=== PATIENT | female | born 1985 | race Caucasian/White ===

== ENCOUNTER → 2017-04-17 | Outpatient (CLI) | payer MEDICAID ==
[~2017-04-17] MED LIST: BUPR100CR PO; IBUP-232 PO; PREN1CAP7 PO
== END ==
LOC: HPND 12:29
PROVIDERS: ATTEND Obstetrics & Gynecology
DX: O36.63X0 Maternal care for excessive fetal growth, third trimester, not applicable or unspecified (principal); Z3A.36 36 weeks gestation of pregnancy
CPT/HCPCS: 76816

== ENCOUNTER 2017-05-11 11:47 | Emergency (ER) | payer MEDICAID ==
[~2017-05-11 11:47] MED LIST changes: -IBUP-232 PO
--- NOTE | 2017-05-11 12:28 | PD ---
HPI Chief Complaint Contractions Date Seen: May 11, 2017 Time Seen: 12:24 Travel History International Travel<30 Days: No Contact w/Intl Traveler<30Days: No Known Affected Area: No History of Present Illness HPI 31-year-old who is at 39 weeks 6 days comes in complaining of contractions off and on since last night they have been mild to moderate in intensity. Cervical check on was 1 cm. She is presently group B strep negative and she has no other, occasions during this . She's had 1 prior spontaneous vaginal delivery at term Weeks Gestation: 1 Para: 2 History Past Medical History Medical History: Denies Significant Hx Obstetric History Obstetric History Spontaneous vaginal delivery 7 lbs. 4 oz. Past Surgical History Surgical History: No Previous Surgery Family History Family History: Negative Social History Alcohol Use: No Tobacco Use: No Substance Abuse: No Allergies-Medications (Allergen,Severity, Reaction): Coded Allergies: No Known Allergies (Verified , 05/08/17) Home Meds Active Scripts W/O Vit A W/ Fe Fumar ([facility] [place]) 27-1-260 Mg Cap, 1 CAP PO DAILY for Nutritional Supplement, #60 CAP 0 Refills Prov:Alexandra Cooley CNM [employer] 09/26/16 Without A W/ Fe Asp G ([facility] 30-1-470 mg) 1 Cap Cap Prov:Vivek Harding MD 09/26/16 Reported Medications Bupropion HCl ER 12 HR (Wellbutrin SR 12 HR) 100 Mg Tab, 100 MG PO Q12HR for Control Depression, TAB 0 Refills 02/17/17 Review of Systems Except as stated in HPI: all other systems reviewed are Neg Physical Exam Narrative GENERAL: Well-nourished, well-developed patient. SKIN: Warm and dry. HEAD: Normocephalic and atraumatic. EYES: No scleral icterus. No injection or drainage. ENT: No nasal drainage noted. Mucous membranes pink. Airway patent. NECK: Supple, trachea midline. No JVD. CARDIOVASCULAR: Regular rate and rhythm without murmurs, gallops, or rubs. RESPIRATORY: Breath sounds equal bilaterally. No accessory muscle use. ABDOMEN/GI: Abdomen soft, non-tender, bowel sounds present, no rebound, no guarding Gravid to [38-] weeks size Fundal Height: [-] GENITOURINARY: External Genitalia: intact and normal in appearance BUS glands: [-Normal] Cervix: [-Posterior] Dilatation: [-1] Effacement: [-50] Station: [--3 vertex] Presentation: [-] Membranes: [intact ] Uterine Contractions: [-Every 5 minutes] FHT's: Category: [-1] Baseline: [140-] Reactive: [-Moderate] Variability: [Moderate-] Decels: [-Absent] EXTREMITIES: No cyanosis or edema. BACK: Nontender without obvious deformity. No CVA tenderness. NEUROLOGICAL: Awake and alert. Motor and sensory grossly within normal limits. Five out of 5 muscle strength in all muscle groups. Normal speech. Data Data Vital Signs Reviewed: Yes Group B Strep: Negative MDM Medical Record Reviewed: Yes Plan 31-year-old who is at 39 weeks 6 days with contractions most likely in latent labor Cervix is unchanged from last Discussed with patient going home with comfort measures including massage, walking, adequate hydration Discussed labor precautions and when to return back to the hospital Diagnosis Diagnosis: Primary Impression: 39 weeks gestation of Additional Impression: Irregular uterine contractions Disposition: 01 DISCHARGE HOME Sharri Pino MD May 11, 2017 12:28
== END 2017-05-11 12:56 | disposition home or self-care (01) ==
LOC: HOBED 11:47
DX: O62.9 Abnormality of forces of labor, unspecified (principal); Z3A.39 39 weeks gestation of pregnancy
CPT/HCPCS: 99283

== ENCOUNTER 2017-05-11 20:04 | Inpatient (IN) | payer MEDICAID, OTHER ==
[2017-05-11] VITALS (21 sets, daily range): BP systolic 53–123; BP diastolic 26–70; PULSE 98–124; RESP 18; TEMP 98.2
[~2017-05-11] VITALS: Ht 160 cm; Wt 77.1 kg
[2017-05-11] MEDS ORDERED: LACTATED RINGER'S 1000 ML INJ 1,000 ML IV SCH (20:33)
[2017-05-11] MEDS ORDERED: LACTATED RINGER'S 1000 ML INJ 1,000 ML IV PRN (20:33)
--- NOTE | 2017-05-11 20:33 | PD ---
HPI Chief Complaint contractions Travel History International Travel<30 Days: No Contact w/Intl Traveler<30Days: No Known Affected Area: No History of Present Illness HPI 31-year-old who is at 39 weeks 6 days who is here earlier today and latent labor at 1 cm. Patient states that over the past several hours her contractions have increased in severity and have become much more frequent and she is in quite a bit of discomfort. She is group B strep negative Weeks Gestation: 39 (39.6) Para: 1 : 2 History Past Medical History Medical History: Denies Significant Hx Obstetric History Obstetric History Spontaneous vaginal delivery 7 lbs. 4 oz. Family History Family History: Negative Social History Alcohol Use: No Tobacco Use: No Substance Abuse: No Allergies-Medications (Allergen,Severity, Reaction): Coded Allergies: No Known Allergies (Verified , 05/08/17) Home Meds Active Scripts W/O Vit A W/ Fe Fumar ([facility] [place]) 27-1-260 Mg Cap, 1 CAP PO DAILY for Nutritional Supplement, #60 CAP 0 Refills Prov:Alexandra Cooley CNM [employer] 09/26/16 Without A W/ Fe Asp G ([facility] 30-1-470 mg) 1 Cap Cap Prov:Vivek Harding MD 09/26/16 Reported Medications Bupropion HCl ER 12 HR (Wellbutrin SR 12 HR) 100 Mg Tab, 100 MG PO Q12HR for Control Depression, TAB 0 Refills 02/17/17 Review of Systems Except as stated in HPI: all other systems reviewed are Neg Physical Exam Narrative GENERAL: Well-nourished, well-developed patient. SKIN: Warm and dry. HEAD: Normocephalic and atraumatic. EYES: No scleral icterus. No injection or drainage. ENT: No nasal drainage noted. Mucous membranes pink. Airway patent. NECK: Supple, trachea midline. No JVD. CARDIOVASCULAR: Regular rate and rhythm without murmurs, gallops, or rubs. RESPIRATORY: Breath sounds equal bilaterally. No accessory muscle use. ABDOMEN/GI: Abdomen soft, non-tender, bowel sounds present, no rebound, no guarding Gravid to [-39] weeks size Fundal Height: [-] GENITOURINARY: External Genitalia: intact and normal in appearance BUS glands: [-Normal] Cervix: [-Mid position] Dilatation: [2-3-] Effacement: [50-] Station: [--2] Presentation: [-Vertex] Membranes: [intact ] Uterine Contractions: [-Every 5] FHT's: Category: [-1] Baseline: [140-] Reactive: [Moderate-] Variability: [-Moderate] Decels: [-Absent] EXTREMITIES: No cyanosis or edema. BACK: Nontender without obvious deformity. No CVA tenderness. NEUROLOGICAL: Awake and alert. Motor and sensory grossly within normal limits. Five out of 5 muscle strength in all muscle groups. Normal speech. Data Data Vital Signs Reviewed: Yes Group B Strep: Negative MDM Medical Record Reviewed: Yes Plan 31-year-old who is at 39 weeks 6 days who is most likely continuing to be in latent labor but this is her second visit to the labor floor and she has documented cervical change and she is very uncomfortable Will admit to labor delivery and monitor for cervical change GBS negative Diagnosis Diagnosis: Primary Impression: Prolonged latent phase of labor Additional Impression: 39 weeks gestation of Sharri Pino MD May 11, 2017 20:33
[2017-05-11] MEDS ORDERED: SODIUM CHLORID 0.9% 500 ML INJ 500 ML IV PRN (20:45)
[2017-05-11] MEDS ORDERED: OXYTOCIN 30 UNITS-500ML PREMIX 500 ML IV ONE (20:45)
[2017-05-11] MEDS ORDERED: ONDANSETRON HCL 4 MG/2 ML VIAL IV PUSH PRN (20:45)
[2017-05-11] MEDS ORDERED: LIDOCAINE HCL 1% 50 ML VIAL I-DERMAL PRN (20:45)
[2017-05-11] MEDS ORDERED: CITRIC ACID-SODIUM CITRATE LIQ 30 ML UDC PO SCH (20:45)
[2017-05-11] MEDS ORDERED: MINERAL OIL 10 ML VIAL TOPICAL PRN (20:45)
[2017-05-11] MEDS ORDERED: LIDOCAINE HCL 1% 50 ML VIAL INFIL PRN (20:45)
[2017-05-11] MEDS ORDERED: SODIUM CHLOR 0.9% 1000 ML INJ 1,000 ML IV PRN (20:53)
[2017-05-11 21:20] LABS: AUTOMATED NEUTROPHIL # 13.3 TH/MM3 (1.8-7.7); BASOPHIL % 0.1 % (0.0-2.0); EOSINOPHIL # 0.1 TH/MM3 (0-0.4); EOSINOPHIL % 0.3 % (0.0-4.0); HEMATOCRIT 37.9 % (35.0-46.0); HEMO FLAGS DIFF FINAL; LYMPHOCYTE # 2.1 TH/MM3 (1.0-4.8); MEAN CELL VOLUME 89.1 FL (80.0-100.0); MEAN CORPUSCULAR HEMOGLOBIN 29.9 PG (27.0-34.0); MEAN CORPUSCULAR HGB CONC 33.5 % (32.0-36.0); MONO % 6.4 % (0.0-8.0); NEUT % 80.2 % (16.0-70.0); PLATELET COUNT 187 TH/MM3 (150-450); RED BLOOD COUNT 4.25 MIL/MM3 (4.00-5.30); RED CELL DISTRIBUTION WIDTH 13.7 % (11.6-17.2); WHITE BLOOD COUNT 16.5 TH/MM3 (4.0-11.0)
[2017-05-11] MEDS ORDERED: fentaNYL 2MCG-BUPIV 0.125% INJ 100 ML ONE (22:06)
[2017-05-11] MEDS ORDERED: ePHEDrine/NS 25 MG/5 ML SYR ONE (22:35)
[2017-05-11 23:19] LABS: BACTERIA, URINE FEW /hpf; BLOOD, URINE TRACE (NEG); CALCIUM OXALATE CRYSTALS,URINE MANY /hpf; COMMENT (UR) CULTURE INDICATED; CULTURE IF INDICATED CULTURE INDICATED; GLUCOSE,URINE NEG (NEG); KETONE, URINE 150 mg/dL (NEG); MUCUS URINE FEW /lpf (OCC); NITRITE,URINE NEG (NEG); SQUAMOUS EPITHELIAL CELL URINE 4 /hpf (0-5); URINE COLOR YELLOW (YELLW/STRAW)
[2017-05-12] VITALS (87 sets, daily range): BP systolic 65–120; BP diastolic 19–76; PULSE 89–121; RESP 16–20; TEMP 98–98.6
[2017-05-12] MEDS ORDERED: OXYTOCIN 30 UNITS-500ML PREMIX 500 ML IV SCH ×3 (07:45→18:30)
[2017-05-12] MEDS ORDERED: fentaNYL 2MCG-BUPIV 0.125% INJ 100 ML ONE (07:47)
--- NOTE | 2017-05-12 08:17 | PD.LABORPN ---
Subjective Subjective Admitted last night in latent labor with cervical dilation of 2cm. Labor progressed slowly with epidural placement overnight. Last cervical check 4-5cm at 0700 Objective Vital Signs Vital Signs Date Time Temp Pulse Resp B/P (MAP) Pulse Ox O2 Delivery O2 Flow Rate FiO2 05/12/17 08:00 98.4 05/12/17 06:00 103 18 107/55 (72) 05/12/17 05:45 18 05/12/17 05:45 106 100/52 (68) 05/12/17 05:30 18 05/12/17 05:15 102 92/52 (65) 05/12/17 05:15 18 05/12/17 05:00 18 05/12/17 05:00 110 77/40 (52) 05/12/17 04:45 18 05/12/17 04:45 110 100/54 (69) 05/12/17 04:30 98 92/36 (54) 05/12/17 04:29 18 05/12/17 04:15 100 18 100/43 (62) 05/12/17 04:00 18 05/12/17 04:00 105 91/41 (58) 05/12/17 03:45 18 05/12/17 03:45 102 97/50 (66) 05/12/17 03:30 104 92/63 (73) 05/12/17 03:30 18 05/12/17 03:15 100 93/44 (60) 05/12/17 03:15 18 05/12/17 03:00 106 97/44 (61) 05/12/17 03:00 18 05/12/17 02:45 18 05/12/17 02:45 100 94/45 (61) 05/12/17 02:30 102 113/50 (71) 05/12/17 02:15 18 05/12/17 02:15 115 81/44 (56) 05/12/17 02:00 96/48 (64) 05/12/17 02:00 102 05/12/17 02:00 98.0 05/12/17 02:00 18 05/12/17 01:45 18 05/12/17 01:30 18 05/12/17 01:30 104 98/48 (65) 05/12/17 01:15 105 87/48 (61) 05/12/17 01:15 18 05/12/17 01:00 18 05/12/17 01:00 105 92/48 (63) 05/12/17 00:45 97 93/42 (59) 05/12/17 00:45 18 05/12/17 00:30 97 90/44 (59) 05/12/17 00:30 18 05/12/17 00:15 18 05/12/17 00:15 101 103/52 (69) Objective Pelvic Exam: Cervix: [] Dilatation: [5-6-] Effacement: 80 Station: -2 Presentation: Vertex Membranes: Artificial rupture membranes with copious amounts of clear fluid Uterine Contractions: Every 5 FHT's: Category: 1 Baseline: 140 Reactive: Moderate Variability: Moderate Decels: Absent Weeks Gestation: 39 (39.6) Gest Age Assessed Date: May 11, 2017 Gest Age Assessed Time: 22:00 Pt started active labor?: Yes Active labor start date: May 11, 2017 Active labor start time: 04:00 Medical induction of labor?: No Artificial rupture of membrane: Yes Artificial ROM date: May 12, 2017 Artifical ROM time: 08:15 Assessment/Plan Assessment and Plan 40 weeks gestation with a negative group B strep admitted in latent labor now in active phase of labor Status post epidural placement with adequate pain relief Assisted rupture membranes with copious amounts of clear fluid noted and a category 1 heart rate tracing Sharri Pino MD May 12, 2017 08:17
[2017-05-12] MEDS ORDERED: NO SYSTEM NARCOTICS PRN (09:15)
[2017-05-12] MEDS ORDERED: fentaNYL 2MCG-BUPIV 0.125% 100 ML EPIDURAL SCH (09:15)
[2017-05-12] MEDS ORDERED: DO NOT ADMINISTER ANTICOAGULANTS PRN (09:15)
[2017-05-12] MEDS ORDERED: ePHEDrine/NS 25 MG/5 ML SYR IV PUSH PRN (09:15)
[2017-05-12] MEDS ORDERED: BUPIVACAINE HCL PF 0.25% 10 ML VIAL ONE (14:57)
[2017-05-12] MEDS ORDERED: DIPHTH/TETANUS/ACEL PERTUSSIS (BOOSTER) 0.5 ML VIAL/PFS IM ONE (16:00)
[2017-05-12] MEDS ORDERED: MEASLES, MUMPS, RUBELLA VACCINE 0.5 ML VIAL SQ ONE (16:00)
--- NOTE | 2017-05-12 18:22 | PD.OB.DELI ---
Weeks gestation: 39 (39.6) Gest age assessed date: May 11, 2017 Gest age assessed time: 22:00 Pt started active labor?: Yes Active labor start date: May 11, 2017 Active labor start time: 04:00 Medical induction of labor?: No Artificial rupture of membrane: Yes Artificial ROM date: May 12, 2017 Artifical ROM time: 08:15 Anesthesia: Epidural Episiotomy: None Vaginal Delivery: Normal Presentation: Occiput anterior Nuchal Cord: None Delayed cord clamping (45 sec): Yes : Female, Single Delivery date: May 12, 2017 Delivery time: 18:10 Weight: 3930 gm Placenta: Spontaneous delivery, Intact, 3 vessel cord Laceration: No lacerations Estimated blood loss: 200 cc Danny Powers II, MD May 12, 2017 18:22
[2017-05-12] MEDS ORDERED: ONDANSETRON ODT 4 MG TAB PO PRN (18:30)
[2017-05-12] MEDS ORDERED: WITCH HAZEL 50%/GLYCERIN 12.5% 40 PAD JAR TOPICAL PRN (18:30)
[2017-05-12] MEDS ORDERED: SODIUM CHLORIDE 0.9% FLUSH 10 ML FLUSH IV FLUSH PRN (18:30)
[2017-05-12] MEDS ORDERED: ACETAMINOPHEN 325 MG TAB PO PRN (18:30)
[2017-05-12] MEDS ORDERED: BENZOCAINE 20% TOPICAL SPRAY 60 ML CAN TOPICAL PRN (18:30)
[2017-05-12] MEDS ORDERED: ALUMINUM/MAGNESIUM/SIMETH 30 ML CUP PO PRN (18:30)
[2017-05-12] MEDS ORDERED: ZOLPIDEM TARTRATE 5 MG TAB PO PRN (18:30)
[2017-05-12] MEDS ORDERED: DOCUSATE SODIUM 50 MG/SENNA 8.6 MG TAB PO PRN (18:30)
[2017-05-12] MEDS: IBUPROFEN 600 MG TAB PO PRN (20:22)
[2017-05-12] MEDS ORDERED: SODIUM CHLORIDE 0.9% FLUSH 10 ML FLUSH IV FLUSH SCH (21:00)
[2017-05-13] MEDS: IBUPROFEN 600 MG TAB PO PRN ×4 (03:21→23:38)
[2017-05-13 08:00] VITALS: BP 100/64; PULSE 77; RESP 16; TEMP 97.8
--- NOTE | 2017-05-13 09:23 | HHI.OB ---
Subjective Post Day: 1 Remarks day 1 Patient's afebrile vital signs are stable, she is tolerating her diet well ambulating with normal voiding. Her bleeding is decreased Objective Vitals/I&O Vital Signs Date Time Temp Pulse Resp B/P (MAP) Pulse Ox O2 Delivery O2 Flow Rate FiO2 05/13/17 08:00 100/64 (76) 05/13/17 08:00 97.8 77 16 05/12/17 21:15 98.5 103 16 96/62 (73) 05/12/17 20:15 100 112/59 (76) 05/12/17 19:45 109 112/62 (79) 05/12/17 19:34 18 05/12/17 19:30 110 110/58 (75) 05/12/17 19:30 18 05/12/17 19:15 105 108/57 (74) 05/12/17 19:12 18 05/12/17 19:00 115 109/65 (80) 05/12/17 18:45 110 106/72 (83) 05/12/17 18:36 18 05/12/17 18:30 108 102/53 (69) 05/12/17 18:15 120 100/54 (69) 05/12/17 18:01 105 110/59 (76) 05/12/17 18:00 113 102/52 (69) 05/12/17 17:45 101 120/66 (84) 05/12/17 17:30 105 113/71 (85) 05/12/17 17:15 91 92/45 (61) 05/12/17 17:00 95 106/52 (70) 05/12/17 16:45 116 91/55 (67) 05/12/17 16:30 89 112/62 (79) 05/12/17 16:15 95 109/61 (77) 05/12/17 15:45 98 106/56 (73) 05/12/17 15:30 100 109/62 (78) 05/12/17 15:15 102 109/56 (73) 05/12/17 15:15 98.6 18 05/12/17 15:00 101 119/63 (81) 05/12/17 14:45 100 113/54 (73) 05/12/17 14:30 105 115/57 (76) 05/12/17 14:15 107 95/59 (71) 05/12/17 14:00 100 111/55 (73) 05/12/17 13:45 100 110/61 (77) 05/12/17 13:30 105 93/53 (66) 05/12/17 13:30 18 05/12/17 13:15 105 107/57 (74) 05/12/17 13:15 98.6 20 05/12/17 13:00 100 96/58 (71) 05/12/17 12:45 98 93/38 (56) 05/12/17 12:30 112 103/44 (63) 05/12/17 12:15 96 92/39 (56) 05/12/17 12:00 103 81/39 (53) 05/12/17 11:46 107 94/41 (58) 05/12/17 11:45 109 94/33 (53) 05/12/17 11:30 98 85/36 (52) 05/12/17 11:15 107 96/43 (60) 05/12/17 11:00 104 95/42 (59) 05/12/17 10:32 109 108/57 (74) 05/12/17 10:30 106 103/56 (72) 05/12/17 10:15 108 101/51 (68) 05/12/17 10:00 108 100/56 (71) 05/12/17 09:45 113 104/56 (72) 05/12/17 09:30 106 94/53 (67) Objective Remarks GENERAL: Well-nourished, well-developed patient. CARDIOVASCULAR: Regular rate and rhythm without murmurs, gallops, or rubs. RESPIRATORY: Breath sounds equal bilaterally. No accessory muscle use. ABDOMEN/GI: Abdomen soft, non-tender. Fundus: Firm, non-tender at umbilicus. GENITOURINARY: Light to moderate bleeding. EXTREMITIES: No cyanosis or edema, non-tender, without signs of DVT. Medications and IVs Current Medications Medications (Trade) Dose Ordered Sig/Tatum Route Start Time Stop Time Status Last Admin Fentanyl/ Bupivacaine HCl 100 ml @ 0 mls/hr TITRATE EPIDURAL 05/12/17 09:15 (NS Flush) 2 ml BID IV FLUSH 05/12/17 21:00 (NS Flush) 2 ml UNSCH PRN IV FLUSH 05/12/17 18:30 (Tylenol) 650 mg Q4H PRN PO 05/12/17 18:30 (Motrin) 600 mg Q6H PRN PO 05/12/17 18:30 05/13/17 03:21 (Percocet 5-325 Mg) 1 tab Q4H PRN PO 05/12/17 18:30 (Americaine 20% Top Spr) 1 spray Q4H PRN TOPICAL 05/12/17 18:30 (Tucks Pads) 1 applic QID PRN TOPICAL 05/12/17 18:30 (Viviana-Colace) 2 tab Q12H PRN PO 05/12/17 18:30 (Ambien) 5 mg HS PRN PO 05/12/17 18:30 (Mag-Al Plus Susp Liq) 15 ml Q8H PRN PO 05/12/17 18:30 (Zofran Odt) 4 mg Q6H PRN PO 05/12/17 18:30 Assessment/Plan Assessment and Plan Multiparous patient on day 1 and doing well, minimal cramps and bleeding is decreased. Patient is breast-feeding well. Baby is doing well. Plan to advance care and to discharge home tomorrow Danny Powers II, MD May 13, 2017 09:23
[2017-05-13] MEDS: oxyCODONE/ACETAMINOPHEN 5 MG/325 MG TAB PO PRN ×3 (12:47→23:38)
[2017-05-13 20:00] VITALS: BP 103/62; PULSE 84; RESP 18; TEMP 98.6
[2017-05-14] MEDS: IBUPROFEN 600 MG TAB PO PRN (06:15)
[2017-05-14] MEDS ORDERED: IBUP-232 PO (07:01)
--- NOTE | 2017-05-14 07:02 | HHI.DCPOC ---
Discharge Care Plan Diagnosis: (1) Normal vaginal delivery (2) Prolonged latent phase of labor Report Symptoms to Your Doctor -Temperature above 100.5 degrees -Redness, of incision or excessive or foul smelling drainage -Unusual pain or calf pain -Increased vaginal bleeding -Painful or difficulty urinating -Feelings of extreme sadness or anxiety after 2 weeks Goals to Promote Your Health * To prevent worsening of your condition and complications * To maintain your health at the optimal level Directions to Meet Your Goals Take your medications as prescribed Follow your dietary instruction Follow activity as directed Ensure plenty of rest for recovery Drink fluids for hydration Keep your appointments as scheduled Take your immunizations and boosters as scheduled If your symptoms worsen call your PCP, if no PCP go to Urgent Care Center or Emergency Room Smoking is Dangerous to Your Health. Avoid second hand smoke Call the 24-hour crisis hotline for domestic abuse at Kristian John MD R2 May 14, 2017 07:01
--- NOTE | 2017-05-14 08:50 | HHI.OB ---
Subjective Remarks 31 year old female s/p at term, PPD 2. AFVSS. Patient reports she is feeling well. Bleeding is decreasing and pain is well-controlled. She is breast feeding and bonding well with baby. Ambulating without difficulties. She is tolerating a diet without nausea or vomiting. She has had a bowel movement. Denies chest pain, dysuria, shortness of breath, or calf pain. (Kristian John MD R2) Objective Vitals/I&O Vital Signs Date Time Temp Pulse Resp B/P (MAP) Pulse Ox O2 Delivery O2 Flow Rate FiO2 05/13/17 20:00 103/62 (76) 05/13/17 20:00 98.6 84 18 Objective Remarks GENERAL: Well-nourished, well-developed patient. CARDIOVASCULAR: Regular rate and rhythm without murmurs, gallops, or rubs. RESPIRATORY: Breath sounds equal bilaterally. No accessory muscle use. ABDOMEN/GI: Abdomen soft, non-tender. Fundus: Firm, non-tender just below umbilicus. GENITOURINARY: Light to moderate bleeding. EXTREMITIES: No cyanosis or edema, non-tender, without signs of DVT. Medications and IVs Current Medications Medications (Trade) Dose Ordered Sig/Tatum Route Start Time Stop Time Status Last Admin Fentanyl/ Bupivacaine HCl 100 ml @ 0 mls/hr TITRATE EPIDURAL 05/12/17 09:15 (NS Flush) 2 ml BID IV FLUSH 05/12/17 21:00 (NS Flush) 2 ml UNSCH PRN IV FLUSH 05/12/17 18:30 (Tylenol) 650 mg Q4H PRN PO 05/12/17 18:30 (Motrin) 600 mg Q6H PRN PO 05/12/17 18:30 05/14/17 06:15 (Percocet 5-325 Mg) 1 tab Q4H PRN PO 05/12/17 18:30 05/13/17 23:38 (Americaine 20% Top Spr) 1 spray Q4H PRN TOPICAL 05/12/17 18:30 (Tucks Pads) 1 applic QID PRN TOPICAL 05/12/17 18:30 (Viviana-Colace) 2 tab Q12H PRN PO 05/12/17 18:30 (Ambien) 5 mg HS PRN PO 05/12/17 18:30 (Mag-Al Plus Susp Liq) 15 ml Q8H PRN PO 05/12/17 18:30 (Zofran Odt) 4 mg Q6H PRN PO 05/12/17 18:30 (Kristian John MD R2) Assessment/Plan Assessment and Plan 31 yo female s/p , PPD 2 - AFVSS - Continue routine care - Motrin PRN pain - Encourage OOB - Pelvic rest x 6 wks - Contraception: Undecided - Home today (Kristian John MD R2) Attending Attestation I discussed pt with residents on morning rounds. Agree with plan of care. (Jean Claude Erazo MD) Kristian John MD R2 May 14, 2017 08:50 Jean Claude Erazo MD May 14, 2017 09:47
== END 2017-05-14 13:51 | disposition home or self-care (01) | DRG 775 ==
LOC: HOBED 20:04 → H2EB 20:38 → H1EA 05-12 20:45
PROVIDERS: ADMIT Obstetrics & Gynecology Obstetrics; ATTEND Obstetrics & Gynecology Obstetrics
PROC: 10E0XZZ Delivery of Products of Conception, External Approach (ICD-10-PCS; principal; 2017-05-11)
PROC: 10907ZC Drainage of Amniotic Fluid, Therapeutic from Products of Conception, Via Natural or Artificial Opening (ICD-10-PCS; 2017-05-11)
DX: O63.0 Prolonged first stage (of labor) (principal); Z37.0 Single live birth; Z3A.39 39 weeks gestation of pregnancy
CPT/HCPCS: 81001; 85025; 86900; 86901; 87086; 90715; J2405; J2590; J7120